=== PATIENT | female | born 1950 | race Caucasian/White ===

== ENCOUNTER 2023-08-13 01:39 | Day surgery (SDC) | payer MEDICARE, SELFPAY ==
[2023-08-12 13:18] VITALS: BMI 34.1
--- NOTE | 2023-08-12 13:24 | PC.NURSE ---
Report to the Outpatient Waiting Room, entrance under the green pavilion located off [facility], at time ___729____ on date __08/13/23 . Planned Procedure Time: ___929 . Time changes happen often and if your time is changed the preop area will call you the afternoon before. - You and your visitor will be asked to self-screen and do not enter if you have any COVID symptoms. - A mask is optional within the hospital at this time. Patients may have clear liquids (water, carbonated beverages, clear teas, apple juice) until 3 hours prior to surgery with a maximum of 20 ounces. - No food from midnight until time of surgery - Infants may have breast milk until 4 hours before surgery, infant formula 6 hours prior to surgery. - Children will be allowed to drink immediately following surgery. If applicable, please bring a bottle or sippy cup to assist with drinking. Juice, water, soda, and popsicles are readily available. For infants on formula, please bring formula the day of surgery. Pacifiers are allowed. Take the following medications with a SIP of water the morning of surgery: _FLUOXETINE, GABAPENTIN, & TYLENOL IF NEEDED_ DO NOT STOP ANY OF YOUR OTHER PRESCRIPTION MEDICATIONS PRIOR TO SURGERY ?EXCEPT THE FOLLOWING Medications to discontinue per physician N/A Date to take last dose Please no make-up, nail maltese, hairspray, perfume, deodorant, or body powder the day of surgery. No jewelry (including any body piercings) or valuables the day of surgery, leave them at home. Please take a shower or bath the night before, or the morning of, surgery with an antibacterial soap. Wear comfortable, loose fitting clothing. Children are encouraged to wear pajamas. - Jewelry must be removed prior to entering the operating room. Rings and piercings that are not removed may be cut off. - The hospital will not accept responsibility for valuables. - Please leave all valuables, including medications, at home the day of surgery. If you are going home after surgery, a licensed automobile drivers must drive you home. - NO public transportation without another adult if you receive anesthesia. - We recommend that an adult stay with you for 24 hours following discharge. - We also recommend that you do not drive, make important decision, drink alcoholic beverages, or take any drugs that were not prescribed by your health care provider for at least 24 hours after your discharge time. For Pediatric surgeries, we recommend two adults accompany the child home. Follow any additional instructions given to you from your surgeon. If you or anyone in your household have experienced Covid symptoms in the past week, please notify your surgeon or the nurse liaison at the phone number below for possible testing. Telephone instructions given to ____PT and asked if any additional questions and then verbalized understanding. Patient advised to call surgeon office or pre surgery nurse liaison [phone] if any additional questions.
[2023-08-13] VITALS (8 sets, daily range): BP systolic 101–155; BP diastolic 57–114; PULSE 69–103; RESP 12–16; TEMP 36.4–37.4; O2SAT 95–100
--- NOTE | ~2023-08-13 | XR_ITS ---
XR surgery orthopedic Indication: ORIF right fibular fracture with sideplate and screws TECHNIQUE: Fluoroscopy used during ORIF right fibular fracture with sideplate and screws performed ivy allison Dr. [Sameer Moise MD] on 08/13/2023. 13 seconds of fluoroscopy with 4 fluoroscopic images captu red. FINDINGS: Correlate with procedure note. IMPRESSION: Fluoroscopy used during ORIF right fibular fracture with sideplate and screws. Reviewed, dictated and finalized at location B.
[2023-08-13] MEDS: ACETAMINOPHEN 500 MG TABLET 1000 MG PO (06:43)
--- NOTE | 2023-08-13 06:49 | ECG_ITS ---
SEE SCANNED COPY FOR CONFIRMED REPORT MTDD
[2023-08-13] MEDS: LACTATED RINGERS 1,000 ML 30 ML IV CONT ×2 (07:32→09:58)
[2023-08-13] MEDS: KETOROLAC 15 MG/ML VIAL (*BKC) IV PUSH (07:33)
--- NOTE | 2023-08-13 08:13 | WPDHPUPDATE1 ---
History and Physical Update Update Date/Time: 08/13/23 08:13 History and Physical has been reviewed, including an updated exam of the patient. There are NO changes in the patient's condition. Risks, benefits, and alternatives have been discussed and questions answered. Patient agrees to proceed with procedure.
[2023-08-13 08:15] LABS: Anion Gap 3 mmol/L (4-12); Blood Urea Nitrogen 15 mg/dL (7-17); Calcium 10.3 mg/dL (8.4-10.2); Carbon Dioxide 31 mmol/L (22-30); Chloride 104 mmol/L (98-107); Estimated CRCL calculation 88 ml/min; Estimated Glomerular Filt Rate > 60; Glucose 113 mg/dL (65-110); Potassium 4.2 mmol/L (3.4-5.0); Sodium 138 mmol/L (137-145)
--- NOTE | 2023-08-13 08:28 | WPDANESEPPF ---
Anes - Initial Pre Proc Eval Procedure: Operation Date: 08/13/23 08:30 Proposed Procedures p Open Reduction Internal Fixation Right Ankle Fracture - Sameer Moise MD Date/Time: 08/13/23 08:28 Surgeon: Sameer Moise MD Pre Op Diagnosis: Right Ankle Fx Patient Data Age: 72 Gender: F Height: 1.68 m Weight: 99 kg Last Vital Signs Temp 99.4 F 08/13/23 07:44 Pulse 69 08/13/23 07:44 Resp 16 08/13/23 07:44 BP 141/65 H 08/13/23 07:44 Pulse Ox 99 08/13/23 07:44 O2 Del Method Room Air 08/13/23 08:17 Allergies Allergy/AdvReac Type Severity Reaction Status Date / Time No Known Allergies Allergy Unverified 08/13/23 06:40 Home Medications Medication Instructions Recorded Confirmed Type acetaminophen 650 mg 1,300 mg PO Q12H PRN Pain 08/12/23 08/12/23 History tablet,extended release atorvastatin 40 mg tablet 40 mg PO QHS 08/12/23 08/12/23 History cranberry 400 mg capsule 400 mg PO BID 08/12/23 08/12/23 History fluoxetine 20 mg capsule (Prozac) 20 mg PO TID 08/12/23 08/12/23 History gabapentin 600 mg tablet 600 mg PO TID 08/12/23 08/12/23 History indapamide 1.25 mg tablet 1.25 mg PO BID 08/12/23 08/12/23 History melatonin 5 mg capsule 5 mg PO HS 08/12/23 08/12/23 History hzscfeow-gyuaoql-gifu-lutein tablet 1 tablet PO DAILY 08/12/23 08/12/23 History naproxen 500 mg tablet 500 mg PO BID 08/12/23 08/12/23 History Laboratory Tests 08/13/23 07:58 Sodium 138 mmol/L (137-145) Potassium 4.2 mmol/L (3.4-5.0) Chloride 104 mmol/L (98-107) Carbon Dioxide 31 H mmol/L (22-30) Anion Gap 3 L mmol/L (4-12) BUN 15 mg/dL (7-17) Creatinine 0.60 L mg/dL (0.7-1.0) Estim Creat Clear Calc 88 ml/min Estimated GFR > 60 (59 - ) Glucose 113 H mg/dL (65-110) Calcium 10.3 H mg/dL (8.4-10.2) Patient hx anesthesia problems: none Family hx anesthesia problems: none Results Review: All pre-operative results and documents have been reviewed as part of the pre-operative evaluation. [facility] Past Medical History Medical History (Updated 08/12/23 @ 13:57 by Sameer Moise MD) Closed fracture of right distal fibula Surgical History Surgical History History of cataract surgery History of tubal ligation Family History Family History Unknown High cholesterol Arthritis Social History Social History Social History: caffeine use Smoking status: Never smoker Second hand tobacco smoke exposure: No Alcohol intake: never Substance use: never Substance use type: does not use Living arrangements: with family Occupation/Education: retired Additional occupation/education comments: teacher Gender identity (if verbalized by the patient): Female Spiritual care concerns: No Anes - Eval Final PreProcedure Day of Procedure 08/13/23 08:28 Patient weight: obese Heart: regular rate and rhythm Lungs: clear to auscultation Airway: Mallampati scale class III Neurological: alert and oriented Last oral intake: >/= 8 hours ASA classification: III Emergent: no Anesthetic plan: proceed Anesthesia type and monitoring: general LMA and standard monitoring Results Review: All pre-operative results and documents have been reviewed as part of the pre-operative evaluation. Informed Consent: The patient's anesthetic plan and its attendant risks and benefits were discussed with the patient/family/POA. Questions were solicited and answers provided to the satisfaction of the patient/family/POA.
[2023-08-13] MEDS: ceFAZolin 2 GM/D5W 50 ML 2 GM/50 ML BAG IVPB (08:33)
[2023-08-13] MEDS: BUPIVACAINE/EPINEPHRINE 0.5% 30 ML VIAL INFILTRATE (09:27)
--- NOTE | 2023-08-13 10:13 | P.OP_ITS ---
Procedure Note - Detailed Date of Procedure 08/13/23 Pre-op Diagnosis Right Ankle Fx Post-op Diagnosis Other (Right ankle distal fibula fracture with syndesmosis disruption) Procedure Performed open reduction internal fixation right distal fibula, open reduction internal fixation distal syndesmosis Surgeon Sameer Moise MD [employer] 1st speech language pathologist assistant Anesthesia General Indications 72-year-old woman who fell and sustained a right distal fibular fracture and ankle disruption. Presents for operative treatment. Description of Procedure After informed consent, the operative extremity was marked in the preoperative holding area. Patient received intravenous antibiotics. Patient was then taken to the operating room and underwent general anesthesia by the anesthesia team. Positioned supine on the operating room table with a soft bump under the ipsilateral hip. A time-out was performed confirming the patient, site of the surgery, operative plan. Lower extremity then prepped and draped in the usual sterile surgical fashion using ChloraPrep skin solution. Foot and ankle exsanguinated and a thigh tourniquet inflated to 250 mmHg. Longitudinal incision made over the lateral ankle distal fibula with a 15 blade knife. Hemostasis controlled with electrocautery. Full-thickness soft tissue flaps developed and the fascia was incised in line with the skin incision. Fracture identified and cleared with a dental pick, irrigation and rongeur. Fracture reduced and held with bone-holding clamp. Image intensification confirmed reduction of the fracture and the ankle mortise. Fixation achieved with Neutralization with a lateral plate with unicortical screws distal to fracture and bicortical screws proximal to the fracture. Good alignment and stability of the fracture noted. Image intensification used to confirm reduction of the fracture and placement of the hardware. fluoroscopic stress views of the ankle then performed. Disruption of the syndesmosis medial instability noted. Indicated for syndesmosis fixation. 4.0 mm drill used from fibula the tibia fluoroscopic guidance. Tight rope system past from lateral to medial. The medial fixation but positioned with intensification. Fixation the syndesmosis then performed tight rope suture laterally. Fluoroscopy confirmed placement of the fixation stability of the syndesmosis and ankle mortise. Wounds thoroughly irrigated with antibiotic solution. Fascia repaired with 00 Vicryl interrupted suture. Subcutaneous tissue repaired with 000 Monocryl interrupted suture and Skin approximated with austin. Sterile dressings applied followed by bulky dressing and splint. Patient awoken from anesthesia, extubated and taken to the recovery room in stable condition. All sponge, needle and instrument counts correct at the end of the case. Palpable dorsalis pedis pulse noted prior to dressing. Implants Arthrex distal fibula plate. Tight rope syndesmosis Estimated Blood Loss 5 Tourniquet Time Total Tourniquet Time: 55 Drains No Packing No Pathology None sent Complications None Condition Stable Disposition PACU [facility] Billing Surgery - Charge Forward: Surgery Billing ([id number], [id number])
[2023-08-13] MEDS: oxyCODONE (*CRX) 5 MG/5 ML ORAL SOLN IR PO (10:55)
== END 2023-08-13 11:40 | disposition home or self-care (01) ==
PROVIDERS: Anesthesiology; Visit Provider Orthopaedic Surgery
PROC: (CPT 27792; principal; 2023-08-13 08:30)
DX: S82.831A Other fracture of upper and lower end of right fibula, initial encounter for closed fracture (principal); S93.431A Sprain of tibiofibular ligament of right ankle, initial encounter; W19.XXXA Unspecified fall, initial encounter; E66.9 Obesity, unspecified; Z68.35 Body mass index [BMI] 35.0-35.9, adult
CPT/HCPCS: 27792; 27829; 36415; 80048; 93005; 97161; 99199; A9270; C1713; J0690; J1100; J1885; J2405; J2704; J3010; J7120